=== PATIENT | female | born 2000 ===

== ENCOUNTER 2018-06-26 13:08 | Outpatient (CLI) | payer OTHER ==
[~2018-06-26] VITALS: Ht 152.4 cm; Wt 45.4 kg
[~2018-06-26 13:08] MED LIST: FLONASE16 GM NS
== END 2018-06-26 13:20 | disposition home or self-care (01) ==
LOC: OFIC 805 13:08
DX: R22.1 Localized swelling, mass and lump, neck (principal); E04.1 Nontoxic single thyroid nodule

== ENCOUNTER 2018-07-16 10:20 | Outpatient (CLI) | payer OTHER ==
[~2018-07-16] VITALS: Ht 152.4 cm; Wt 45.4 kg
== END 2018-07-16 11:53 | disposition home or self-care (01) ==
LOC: OFIC 805 10:20
DX: E04.1 Nontoxic single thyroid nodule (principal); K21.0 Gastro-esophageal reflux disease with esophagitis

== ENCOUNTER 2018-11-01 12:08 | Outpatient (CLI) | payer OTHER | END 2018-11-01 12:20 | disposition home or self-care (01) | LOC: OFIC 805 12:08 | DX: E04.1 Nontoxic single thyroid nodule (principal) ==

== ENCOUNTER 2018-11-15 08:02 | Outpatient (CLI) | payer OTHER | END 2018-11-15 09:00 | disposition home or self-care (01) | LOC: NUCLEAR 08:02 | DX: E04.8 Other specified nontoxic goiter (principal) | CPT/HCPCS: 78012; A9531 ==

== ENCOUNTER 2018-11-16 09:08 | Outpatient (CLI) | payer OTHER | END 2018-11-16 10:14 | disposition home or self-care (01) | LOC: NUCLEAR 09:08 | DX: E04.8 Other specified nontoxic goiter (principal) | CPT/HCPCS: 78013; A9512 ==

== ENCOUNTER 2021-02-18 09:22 | Outpatient (CLI) | payer OTHER | END 2021-02-18 09:24 | disposition home or self-care (01) | LOC: SONOGRAMA 09:22 | PROVIDERS: ATTEND Pathology Anatomic Pathology & Clinical Pathology | DX: E04.1 Nontoxic single thyroid nodule (principal) ==